=== PATIENT | male | born 1940 | race Caucasian/White ===

== ENCOUNTER 2017-10-18 08:36 | Day surgery (SDC) | payer MEDICARE, OTHER ==
[2017-10-18] MEDS ORDERED: CIPROFLOXACIN 400MG/D5W 200 ML (09:36)
[2017-10-18] MEDS ORDERED: PROPOFOL 40 ML (10:12)
== END 2017-10-18 10:54 | disposition home or self-care (01) ==
LOC: GIL 08:36
DX: I85.00 Esophageal varices without bleeding (principal); K31.89 Other diseases of stomach and duodenum
CPT/HCPCS: 43244

== ENCOUNTER 2018-07-27 06:03 | Day surgery (SDC) | payer MEDICARE, OTHER ==
[2018-07-27] MEDS ORDERED: PROPOFOL 60 ML (07:40)
== END 2018-07-27 10:31 | disposition home or self-care (01) ==
LOC: GIL 06:03
DX: I85.00 Esophageal varices without bleeding (principal); K31.89 Other diseases of stomach and duodenum
CPT/HCPCS: 43244